=== PATIENT | male | born 1975 | race Caucasian/White ===

== ENCOUNTER 2016-06-28 09:42 | Emergency (ER) | payer OTHER ==
[~2016-06-28] VITALS: Ht 188 cm; Wt 101.2 kg
[~2016-06-28 09:42] MED LIST: AMOXICILLIN 50500 M1 PO; CLEOCIN HCL300 MG PO; HYDROCODON-ACE1 EACH PO; IBUPROFEN 600600 M1 PO; KEFLEX500 MG PO; MEN'S MULTI-VI1 EACH PO; NOHOMEMEDICATIONS; NORCO 5-325 TA1 EACH PO; SUDAFED 12-HOU120 MG PO; WELLBUTRIN 100100 MG PO
[2016-06-28] MEDS ORDERED: IBUPROFEN 800800 M1 PO (10:03)
[2016-06-28] MEDS ORDERED: TESSALON PERLE100 MG PO (10:03)
[2016-06-28] MEDS ORDERED: CLARITIN-D 12 H1 TA1 PO (10:03)
[2016-09-05] MEDS ORDERED: PROMETHAZINE-D120 ML PO (22:14)
[2016-09-05] MEDS ORDERED: DELTASONE20 MG PO (22:14)
== END 2016-06-28 10:15 | disposition home or self-care (01) ==
LOC: ER 09:42
DX: J06.9 Acute upper respiratory infection, unspecified (principal); F17.210 Nicotine dependence, cigarettes, uncomplicated

== ENCOUNTER 2017-06-23 08:07 | Emergency (ER) | payer OTHER ==
[~2017-06-23] VITALS: Ht 188 cm; Wt 108.9 kg
[~2017-06-23 08:07] MED LIST changes: +CLARITIN-D 12 H1 TA1 PO; +DELTASONE20 MG PO; +ERYTHROMYCIN E3.5 G3 OPHTHALMIC; +HYDROCODONE-AP1 EAC6 PO; +IBUPROFEN 800800 M1 PO; +PROMETHAZINE-D120 ML PO; +PROZAC20 MG PO; +TESSALON PERLE100 MG PO
[2017-06-23] MEDS ORDERED: PROVENTIL HFA6.7 G1 INH (10:28)
[2017-06-23] MEDS ORDERED: TESSALON PERLE100 MG PO (10:28)
[2017-06-23] MEDS ORDERED: PREDNISONE 20 M20 MG PO (10:28)
[2017-06-23 10:38] VITALS: BP 123/83
== END 2017-06-23 10:39 | disposition home or self-care (01) ==
LOC: ER 08:07
DX: J06.9 Acute upper respiratory infection, unspecified (principal); F17.210 Nicotine dependence, cigarettes, uncomplicated; Z98.890 Other specified postprocedural states

== ENCOUNTER 2017-10-09 12:12 | Inpatient (IN) | payer OTHER ==
[~2017-10-09] VITALS: Ht 188 cm; Wt 106.6 kg
--- NOTE | ~2017-10-09 | EKG ---
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
--- NOTE | ~2017-10-09 | O ---
[facility] [place] [address] OPERATIVE REPORT Name: BENTON BRUSH Room #: 416-P ADM IN M.R.#: [id number] Admission: 10/09/17 Attend Phys: Joel Vega MD, F Discharge: Date of : 75 Report #: [id number] THIS REPORT FOR: //name// CC: MARIAH physician/PCP Joel Vega DATE OF SERVICE: 10/10/2017 SURGEON: Joel Vega MD AUTOMOBILE DAMAGE APPRAISER: None. PREOPERATIVE DIAGNOSIS: Acute appendicitis. POSTOPERATIVE DIAGNOSIS: Acute suppurative, nonperforated appendicitis. PROCEDURE: Laparoscopic appendectomy. ANESTHESIA: General endotracheal anesthesia and local anesthetic. ESTIMATED BLOOD LOSS: 5 mL. SPECIMEN: Appendix. COMPLICATIONS: None appreciated. INDICATIONS FOR PROCEDURE: This is a 42-year-old male patient with acute onset right lower quadrant abdominal pain, awakening him from his sleep. He had no relief of his symptoms with chocolate milk. He was seen in the [place] [facility] and found to have CT evidence for acute appendicitis with leukocytosis. He was placed on antibiotics. He presents now for laparoscopic appendectomy. OPERATIVE FINDINGS: Upon entrance in the abdominal cavity, purulent fluid was seen within the pelvis. The appendix was buried beneath the terminal ileum beyond the veil of Mitch. The distal quarter of the appendix was necrotic with no overt perforation or abscess seen. The base of the appendix was relatively uninvolved with the inflammatory change. Due to the purulent fluid within the abdominal cavity, decision was made to place a drain at the end of the operation. No other significant intra-abdominal pathology was seen. At the conclusion of the operation, the sponge, needle and instrument counts were correct. There was no evidence for iatrogenic injury. The staple line was secure. DESCRIPTION OF PROCEDURE IN DETAIL: After the risks, benefits and expectations of the operation were discussed in detail with the patient, informed consent was [address] [address] OPERATIVE REPORT Name: NAHUN BRUSHAdolfo SANDHU Room #: 416-P [facility]#: [id number] Admission: 10/09/17 Attend Phys: Joel Vega MD, F Discharge: Date of : 75 Report #: [id number] obtained. The patient was identified in the preoperative holding area. He has been receiving scheduled IV antibiotics as documented in the chart. The patient was then taken to the operating room, and he was placed in the supine position. SCDs were placed on the patient's bilateral lower extremities, and pneumatic compression was initiated. The patient was then given IV sedation, and he was intubated without incident. His abdomen was prepped and draped in the standard sterile fashion. A time-out was performed to identify the correct patient and procedure. Local anesthetic was infiltrated into the skin and subcutaneous tissue infraumbilically where a curvilinear incision was made with #15 blade scalpel. Dissection was carried down to the fascia. A small fascial opening was created, and the 12 mm Visiport was placed intraperitoneally with a 0-degree angled laparoscope. Pneumoperitoneum was then achieved with insufflation of carbon dioxide to 15 mmHg. A 30-degree angled laparoscope was inserted. The patient was placed in the Trendelenburg position. A suprapubic 5 mm and left lower quadrant 5 mm ports were each placed under direct visualization after local anesthetic was infiltrated into the skin and subcutaneous tissue and appropriately sized incisions were made. Operative findings are as noted above. The base of the appendix was identified; however, the distal two-thirds of the appendix was difficult to visualize. The base of the appendix was relatively uninvolved with inflammatory change. A window was made in the mesoappendix adjacent to the base of the appendix. A blue load endoscopic YOSHI stapler was then used to staple and divide the appendix with a single firing. The base of the appendix was then used as a handle to divide the mesoappendix with the ultrasonic dissector. The distal quarter of the appendix was bluntly dissected free and appeared to be necrotic. The appendix was placed in an Endopouch and removed through with the 12 mm port site. An 0 PDS suture was placed with the Shravan-German laparoscopic fascial closure device. The suture was tagged and the port was replaced. The abdominal cavity was then reentered. The staple line was secure. The abdominal cavity was then irrigated and suctioned until return of all drainage ran clear. The small bowel was run back approximately 2 feet, and there was no evidence for a Meckel diverticulum. Other findings are as noted above. A 19-Wolof Jabari drain was then placed within the abdominal cavity and brought out through the suprapubic port site. The drain was secured to the skin with a 2-0 nylon suture. Intraabdominally, the drain was positioned along the right pericolic gutter. The 12 mm port was then removed and the fascial suture was tied under direct visualization to ensure no incorporation of intra-abdominal content. The abdominal cavity was then desufflated and the remaining port was removed. Interrupted subcuticular 4-0 Monocryl sutures and Dermabond were used to close the skin incisions. The patient tolerated the procedure well. He was awakened, extubated and taken to the recovery room in stable condition with no apparent intraoperative complications. <ELECTRONICALLY SIGNED> By: Joel Vega MD, FACS 10/10/17 1344 [id number] Joel Vega MD, FACS /nt
[~2017-10-09 12:12] MED LIST changes: +PREDNISONE 20 M20 MG PO; +PROVENTIL HFA6.7 G1 INH
[2017-10-09 12:37] VITALS: BP 146/94
[2017-10-09 12:42] LABS: URINE BILIRUBIN NEGATIVE (Negative); URINE BLOOD NEGATIVE (Negative); URINE CLARITY CLEAR; URINE COLOR YELLOW; URINE GLUCOSE-RANDOM* NEGATIVE (Negative); URINE KETONES NEGATIVE (Negative); URINE LEUKOCYTES NEGATIVE (Negative); URINE NITRITE NEGATIVE (Negative); URINE PROTEIN (DIPSTICK) NEGATIVE (Negative); URINE SPECIFIC GRAVITY 1.025 (1.005-1.035); URINE UROBILINOGEN 0.2 E.U./dl (0.2-1.0)
[2017-10-09 13:12] LABS: ABSOLUTE NEUTROPHILS 9.9 thou/uL (1.4-8.2); BASOPHILS 0.5 % (0.0-2.0); EOSINOPHILS 0.6 % (0.0-3.0); HEMATOCRIT 49.4 % (42.0-52.0); HEMOGLOBIN 17.5 gm/dL (14.0-18.0); LYMPHOCYTES 15.4 % (24.0-44.0); MCH 31.6 pg (26.0-34.0); MCHC 35.4 g/dL (28.0-37.0); MCV 89.1 fL (80.0-100.0); MONOCYTES 5.7 % (1.0-8.0); PLATELET COUNT 185 thou/uL (150-400); POLYS 77.8 % (36.0-66.0); RBC 5.55 mil/uL (4.50-6.00); WBC 12.7 thou/uL (4.0-11.0)
[2017-10-09 13:24] LABS: CALCIUM 9.6 mg/dL (8.5-10.1); CREATININE 1.3 mg/dL (0.7-1.3); POTASSIUM 4.3 mmol/L (3.5-5.1)
[2017-10-09 13:29] LABS: ALBUMIN 3.9 g/dL (3.4-5.0); TOTAL BILIRUBIN 1.1 mg/dL (<0.1-1.0); TOTAL PROTEIN 7.6 g/dL (6.4-8.2)
[2017-10-09 14:27] LABS: PROTIME 10.3 Seconds (9.3-11.4)
[2017-10-09 14:58] VITALS: BP 146/94
[2017-10-09 16:00] VITALS: BP 142/87
[2017-10-09 17:14] VITALS: BP 135/86
[2017-10-09 20:45] VITALS: BP 148/87
[2017-10-10 03:41] VITALS: BP 108/64
[2017-10-10 10:50] VITALS: BP 100/51
[2017-10-10 11:15] VITALS: BP 106/71
[2017-10-10 11:38] VITALS: BP 110/71
[2017-10-10 20:00] VITALS: BP 108/68
[2017-10-11] VITALS: BP 98/52
[2017-10-11 04:00] VITALS: BP 100/64
[2017-10-11 04:59] LABS: CALCIUM 8.6 mg/dL (8.5-10.1); CREATININE 1.3 mg/dL (0.7-1.3); POTASSIUM 3.6 mmol/L (3.5-5.1)
[2017-10-11 05:04] LABS: ABSOLUTE NEUTROPHILS 9.6 thou/uL (1.4-8.2); BASOPHILS 0.6 % (0.0-2.0); EOSINOPHILS 0.1 % (0.0-3.0); HEMATOCRIT 42.9 % (42.0-52.0); LYMPHOCYTES 12.7 % (24.0-44.0); MCH 31.4 pg (26.0-34.0); MCHC 34.5 g/dL (28.0-37.0); PLATELET COUNT 162 thou/uL (150-400); POLYS 79.6 % (36.0-66.0); RBC 4.71 mil/uL (4.50-6.00)
[2017-10-11 05:33] LABS: HEMOGLOBIN 14.8 gm/dL (14.0-18.0)
[2017-10-11 07:13] LABS: HBsAG-EMPLOYEE EXPOSURE Negative (Negative); HCV AB-EMPLOYEE EXPOSURE <0.1 (0.0-0.9)
[2017-10-11 08:38] VITALS: BP 117/73
[2017-10-11] MEDS ORDERED: AUGMENTIN 875-1 EACH PO (09:11)
[2017-10-11] MEDS ORDERED: HYDROCODON-ACE1 EAC7 PO (09:11)
[2017-10-11 09:36] VITALS: BP 117/73
== END 2017-10-11 10:25 | disposition home or self-care (01) | DRG 343 ==
LOC: ER 12:12 → 4N 14:15 → EROBS 14:15 → 4N 15:45
PROVIDERS: Physician Assistant; Specialist; Surgery
PROC: 0DTJ4ZZ Resection of Appendix, Percutaneous Endoscopic Approach (ICD-10-PCS; principal; 2017-10-10)
DX: K35.80 Unspecified acute appendicitis (principal); F17.210 Nicotine dependence, cigarettes, uncomplicated
CPT/HCPCS: 10091; 50010; 50249; 50378; 50411; 50555; 50558; 50739; 50740; 50962; 51489; 51975; 52265; 53307; 54022; 54118; 56525; 56526; 56527

== ENCOUNTER 2018-04-18 08:03 | Emergency (ER) | payer OTHER ==
[~2018-04-18] VITALS: Ht 188 cm; Wt 113.4 kg
[~2018-04-18 08:03] MED LIST changes: +AUGMENTIN 875-1 EACH PO; +HYDROCODON-ACE1 EAC7 PO
[2018-04-18 08:38] LABS: ABSOLUTE NEUTROPHILS 3.8 thou/uL (1.4-8.2); BASOPHILS 0.8 % (0.0-2.0); HEMATOCRIT 49.7 % (42.0-52.0); HEMOGLOBIN 17.8 gm/dL (14.0-18.0); LYMPHOCYTES 35.9 % (24.0-44.0); MCH 32.1 pg (26.0-34.0); MCHC 35.9 g/dL (28.0-37.0); MCV 89.6 fL (80.0-100.0); MONOCYTES 8.3 % (1.0-8.0); PLATELET COUNT 179 thou/uL (150-400); RBC 5.55 mil/uL (4.50-6.00); RDW 13.4 % (10.5-14.5); WBC 7.1 thou/uL (4.0-11.0)
[2018-04-18 08:39] LABS: URINE BILIRUBIN NEGATIVE (Negative); URINE BLOOD NEGATIVE (Negative); URINE CLARITY CLEAR; URINE COLOR YELLOW; URINE GLUCOSE-RANDOM* NEGATIVE (Negative); URINE KETONES NEGATIVE (Negative); URINE LEUKOCYTES-REFLEX NEGATIVE (Negative); URINE NITRITE-REFLEX NEGATIVE (Negative); URINE PROTEIN (DIPSTICK) NEGATIVE (Negative); URINE UROBILINOGEN 0.2 E.U./dl (0.2-1.0)
[2018-04-18 08:51] LABS: CREATININE 1.2 mg/dL (0.7-1.3); POTASSIUM 4.1 mmol/L (3.5-5.1)
[2018-04-18 08:54] LABS: ALBUMIN 3.8 g/dL (3.4-5.0); TOTAL BILIRUBIN 0.7 mg/dL (<0.1-1.0); TOTAL PROTEIN 7.7 g/dL (6.4-8.2)
[2018-04-18] MEDS ORDERED: LOPERAMIDE 2 MG2 M1 PO (09:03)
[2018-04-18] MEDS ORDERED: BENTYL 20 MG TA20 M1 PO (09:03)
== END 2018-04-18 09:28 | disposition home or self-care (01) ==
LOC: ER 08:03
PROVIDERS: Emergency Medicine
DX: R10.31 Right lower quadrant pain (principal); R19.7 Diarrhea, unspecified

== ENCOUNTER 2018-10-11 08:04 | Emergency (ER) | payer OTHER ==
[~2018-10-11] VITALS: Ht 188 cm; Wt 108.9 kg
[~2018-10-11 08:04] MED LIST changes: +BENTYL 20 MG TA20 M1 PO; +LOPERAMIDE 2 MG2 M1 PO
[2018-10-11 08:22] LABS: URINE BILIRUBIN NEGATIVE (Negative); URINE BLOOD NEGATIVE (Negative); URINE CLARITY CLEAR; URINE COLOR YELLOW; URINE GLUCOSE-RANDOM* NEGATIVE (Negative); URINE KETONES NEGATIVE (Negative); URINE LEUKOCYTES-REFLEX NEGATIVE (Negative); URINE NITRITE-REFLEX NEGATIVE (Negative); URINE PROTEIN (DIPSTICK) NEGATIVE (Negative); URINE SPECIFIC GRAVITY 1.025 (1.005-1.035); URINE UROBILINOGEN 0.2 E.U./dl (0.2-1.0)
[2018-10-11 08:45] LABS: ABSOLUTE NEUTROPHILS 3.4 thou/uL (1.4-8.2); BASOPHILS 0.6 % (0.0-2.0); EOSINOPHILS 2.3 % (0.0-3.0); HEMOGLOBIN 16.7 gm/dL (14.0-18.0); LYMPHOCYTES 36.4 % (24.0-44.0); MCH 31.1 pg (26.0-34.0); MCHC 34.7 g/dL (28.0-37.0); MCV 89.8 fL (80.0-100.0); MONOCYTES 9.1 % (1.0-8.0); PLATELET COUNT 174 thou/uL (150-400); POLYS 51.6 % (36.0-66.0); RBC 5.35 mil/uL (4.50-6.00); WBC 6.5 thou/uL (4.0-11.0)
[2018-10-11 08:46] LABS: ANION GAP 10 mmol/L (7-16); BUN 14 mg/dL (7-18); CALCIUM 9.2 mg/dL (8.5-10.1); CHLORIDE 104 mmol/L (98-107); CO2 25 mmol/L (21-32); CREATININE 1.2 mg/dL (0.7-1.3); GLUCOSE 114 mg/dL (74-106); POTASSIUM 4.2 mmol/L (3.5-5.1); SODIUM 139 mmol/L (136-145)
[2018-10-11 08:57] LABS: ALBUMIN 3.9 g/dL (3.4-5.0); LIPASE 135 U/L (73-393); SGOT 25 U/L (15-37); SGPT 50 U/L (30-65); TOTAL BILIRUBIN 0.8 mg/dL (<0.1-1.0); TOTAL PROTEIN 7.6 g/dL (6.4-8.2); TROPONIN-I <0.06 ng/mL (<0.06)
[2018-10-11] MEDS ORDERED: TRAMADOL 50 MG50 MG PO (10:24)
[2018-10-11] MEDS ORDERED: NAPROSYN500 MG PO (10:24)
[2018-10-11 10:40] VITALS: BP 114/66
--- NOTE | 2018-10-12 09:36 | EKG ---
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: : 1975 Requested By: Carlos Vincent Order Number: [id number] MD: Favian Lucas Measurements Intervals [place] Rate: 59 P: 46 [place]: 168 QRS: 25 QRSD: 99 T: 40 QT: 411 QTc: 408 Interpretive Statements Sinus bradycardia Otherwise no significant abnormality Compared to ECG 10/09/2017 15:35:25 No significant change was found Electronically Signed On 10-12-2018 9:35:51 CDT by Favian Lucas [email or web address] ��������������������������������������������� <ELECTRONICALLY SIGNED> ���������������������������������������� By: Favian Lucas MD, [facility] ��������������������������������������������� 10/12/18 0935 0836 08 Favian Lucas MD, FACC /EPI
== END 2018-10-11 10:42 | disposition home or self-care (01) ==
LOC: ER 08:04
PROVIDERS: Emergency Medicine
DX: R10.31 Right lower quadrant pain (principal); F17.210 Nicotine dependence, cigarettes, uncomplicated; Z87.19 Personal history of other diseases of the digestive system; Z88.8 Allergy status to other drugs, medicaments and biological substances; Z90.49 Acquired absence of other specified parts of digestive tract

== ENCOUNTER 2021-02-10 11:10 | Emergency (ER) | payer OTHER ==
[~2021-02-10] VITALS: Ht 188 cm; Wt 110.2 kg
[~2021-02-10 11:10] MED LIST changes: +NAPROSYN500 MG PO; +TRAMADOL 50 MG50 MG PO
[2021-02-10 11:57] LABS: ABSOLUTE NEUTROPHILS 12.1 thou/uL (1.4-8.2); BASOPHILS 0.5 % (0.0-2.0); EOSINOPHILS 0.2 % (0.0-3.0); HEMATOCRIT 48.8 % (42.0-52.0); HEMOGLOBIN 16.6 gm/dL (14.0-18.0); LYMPHOCYTES 8.2 % (24.0-44.0); MCV 91.2 fL (80.0-100.0); MONOCYTES 8.5 % (1.0-8.0); PLATELET COUNT 165 thou/uL (150-400); POLYS 82.6 % (36.0-66.0); RBC 5.35 mil/uL (4.50-6.00); RDW 13.5 % (10.5-14.5); WBC 14.6 thou/uL (4.0-11.0)
[2021-02-10 12:09] LABS: CALCIUM 8.9 mg/dL (8.5-10.1); CREATININE 1.4 mg/dL (0.7-1.3); POTASSIUM 3.9 mmol/L (3.5-5.1)
[2021-02-10 12:16] LABS: ALBUMIN 3.9 g/dL (3.4-5.0); DIRECT BILIRUBIN 0.2 mg/dL (<0.1-0.2); TOTAL BILIRUBIN 1.4 mg/dL (0.2-1.0); TOTAL PROTEIN 7.3 g/dL (6.4-8.2)
[2021-02-10] MEDS ORDERED: AUGMENTIN 875-1 EACH PO (13:56)
[2021-02-10] MEDS ORDERED: HYDROCODON-ACE1 EAC7 PO (13:56)
[2021-02-10 14:13] VITALS: BP 140/66
[2021-02-11] MEDS ORDERED: LOVENOX100 MG/1 M SUBQ (20:15)
[2021-02-11] MEDS ORDERED: XARELTO15 MG PO (22:47)
== END 2021-02-10 14:13 | disposition home or self-care (01) ==
LOC: ER 11:10
PROVIDERS: Nurse Practitioner
DX: R10.31 Right lower quadrant pain (principal); F17.210 Nicotine dependence, cigarettes, uncomplicated; Z88.8 Allergy status to other drugs, medicaments and biological substances

== ENCOUNTER 2021-02-11 16:47 | Emergency (ER) | payer OTHER ==
[~2021-02-11] VITALS: Ht 188 cm; Wt 110.2 kg
[2021-02-11] MEDS ORDERED: LOVENOX100 MG/1 M SUBQ (20:15)
[2021-02-11 20:36] VITALS: BP 120/80
[2021-02-11] MEDS ORDERED: XARELTO15 MG PO (22:47)
== END 2021-02-11 20:36 | disposition home or self-care (01) ==
LOC: ER 16:47
DX: L03.115 Cellulitis of right lower limb (principal); I82.401 Acute embolism and thrombosis of unspecified deep veins of right lower extremity; F17.210 Nicotine dependence, cigarettes, uncomplicated; Z88.8 Allergy status to other drugs, medicaments and biological substances; Z90.49 Acquired absence of other specified parts of digestive tract